=== PATIENT | male | born 1960 | race Caucasian/White ===

== ENCOUNTER 2019-12-09 12:46 | Emergency (ER) | payer SELFPAY ==
[2019-12-09] MEDS ORDERED: Ibuprofen 200 MG TAB ONE ×2 (13:10→13:14)
== END 2019-12-09 13:20 | disposition home or self-care (01) ==
LOC: NAV ERS 12:46
DX: S39.012A Strain of muscle, fascia and tendon of lower back, initial encounter (principal); Z71.6 Tobacco abuse counseling; F17.210 Nicotine dependence, cigarettes, uncomplicated; W18.41XA Slipping, tripping and stumbling without falling due to stepping on object, initial encounter
CPT/HCPCS: 99406